=== PATIENT | male | born 1960 | race Caucasian/White ===

== ENCOUNTER 2020-11-06 11:16 | Day surgery (SDC) | payer BC, OTHER ==
[2020-10-31 12:13] LABS: BASOPHILS % (AUTO) 0.5 % (0-1); EOSINOPHILS # (AUTO) 0.1 X10'3 (0-0.9); EOSINOPHILS % (AUTO) 0.7 % (0-6); LYMPHOCYTES # (AUTO) 1.2 X10'3 (1.1-4.8); MEAN CORPUSCULAR HEMOGLOBIN 29.2 PG (27.0-31.0); MEAN CORPUSCULAR VOLUME 88.5 FL (78-98); MEAN PLATELET VOLUME 8.2 FL (7.4-10.4); MONOCYTES # (AUTO) 0.5 X10'3 (0-0.9); MONOCYTES % (AUTO) 7.5 % (2-12); NEUTROPHILS # (AUTO) 5.4 X10'3 (1.8-7.7); NEUTROPHILS % (AUTO) 74.3 % (42-75); PRE OP HEMATOCRIT 47.7 % (42.0-52.0); PRE OP HEMOGLOBIN 15.7 g/dL (14.0-17.9); PRE OP PLATELET COUNT 236 X10'3 (140-440); RED BLOOD COUNT 5.38 X10'6 (4.70-6.10); RED CELL DISTRIBUTION WIDTH 13.5 % (11.5-14.5)
[2020-10-31 12:33] LABS: ALBUMIN 3.7 G/DL (3.4-5.0); ALBUMIN/GLOBULIN RATIO 1.1 (1.1-1.5); ALKALINE PHOSPHATASE 98 IU/L (46-116); BLOOD UREA NITROGEN 27 MG/DL (7-18); BUN/CREATININE RATIO 24.3 (5.4-32.0); CALCIUM 9.6 MG/DL (8.5-10.1); CHLORIDE 107 MMOL/L (99-107); CREATININE 1.11 MG/DL (0.60-1.10); PRE OP ALT 41 U/L (30-65); PRE OP AST 27 U/L (10-37); PRE OP BILIRUB, TOTAL 0.6 MG/DL (0.0-1.0); PRE OP GLUCOSE 104 MG/DL (70-104); PRE OP POTASSIUM 4.6 MMOL/L (3.4-5.1); TOTAL CARBON DIOXIDE 29.2 MMOL/L (24-32); TOTAL PROTEIN 7.1 G/DL (6.4-8.2); eGFR 67 ML/MIN
[2020-10-31 12:37] LABS: PRE OP ANION GAP 8 (8-16); PRE OP SODIUM 144 MMOL/L (135-145)
[2020-11-06] VITALS (21 sets, daily range): BP systolic 104–152; BP diastolic 56–91
[~2020-11-06] VITALS: Ht 188 cm; Wt 95.5 kg
[~2020-11-06 11:16] MED LIST: ASPI-1265 PO; ATOR20TA66 PO; LISI-790 PO; cefazolin/dext.iso 2gm/100ml 100 ML IV ONE; famotidine 20mg tablet PO ONE; ringers solution, lacted 1,000 ML IV SCH
[2020-11-06] MEDS ORDERED: BUPIVAcaine/PF 2.5 mg/ml (0.25%) 30ml vial ONE (12:51)
[2020-11-06] MEDS ORDERED: LIDOcaine 1% 30ml preserv. free vial ONE (12:51)
[2020-11-06] MEDS ORDERED: sevoflurane 250ml liquid IH ONE (12:52)
[2020-11-06] MEDS ORDERED: fentaNYL /PF 50mcg/ml 5ml ampule ONE (13:02)
[2020-11-06] MEDS ORDERED: midazolam 1 mg/ML 2ml injection ONE (13:02)
[2020-11-06] MEDS ORDERED: LIDOcaine 2% 5ml jelly ONE (13:10)
[2020-11-06] MEDS ORDERED: dexamethasone sod phosphate 4mg/ml inj. ONE (13:25)
[2020-11-06] MEDS ORDERED: ondansetron/PF 4mg/2ml inj ONE (13:25)
[2020-11-06] MEDS ORDERED: propofol inj 20 ML IV ONE (13:25)
[2020-11-06] MEDS ORDERED: rocuronium 10mg/ml inj IV ONE (13:25)
[2020-11-06] MEDS ORDERED: atropine 0.4 mg/ml 20ml vial ONE (13:36)
[2020-11-06] MEDS ORDERED: glycopyrrolate 0.2mg/ml inj ONE (13:36)
[2020-11-06] MEDS ORDERED: ondansetron/PF 4mg/2ml inj IV PRN (13:50)
[2020-11-06] MEDS ORDERED: morphine 4 MG/ML inj SYRINge IV PRN (13:50)
[2020-11-06] MEDS ORDERED: acetaminophen 1,000mg/100ml IV 100 ML IV PRN (13:50)
[2020-11-06] MEDS ORDERED: ringers solution, lacted 1,000 ML IV SCH (13:50)
[2020-11-06] MEDS ORDERED: proCHLORperazine 10 MG/2 ml inj IV PRN (13:50)
[2020-11-06] MEDS ORDERED: morphine 2 MG/ML inj. syringe IV PRN (13:50)
[2020-11-06] MEDS ORDERED: meperidine/PF 25mg/ml syringe IV PRN ×3 (13:50)
[2020-11-06] MEDS ORDERED: hydrALAZINE 20mg/ml inj. IV PRN (13:50)
[2020-11-06] MEDS ORDERED: neostigmine methylsulfate 1 MG/ML 10ml vial ONE (14:10)
--- NOTE | 2020-11-06 14:21 | NUR ---
Received from OR via SUNDAY IN STABLE CONDITION , accompanied by Anesthesiologist and TELECOM BILLING ANALYST report given by Fabio. Addendum: 11/06/20 at 1458 by Sirena Multani RN Amended: Links added.
[2020-11-06] MEDS ORDERED: HYDROcodone/acetaminophen 10/325mg tab PO PRN (14:25)
[2020-11-06] MEDS ORDERED: HYDROcodone/acetaminophen 5mg/325mg tablet PO PRN (14:25)
--- NOTE | 2020-11-06 18:23 | NUR ---
PATIENT STABLE AND UP SINCE 1729 TRYING TO VOID. Addendum: 11/06/20 at 1823 by Sirena Multani RN Amended: Links added.
[2020-11-06] MEDS ORDERED: LIDOcaine 2% 10ml TOPICAL JELLY (Urojet) MM ONE (19:20)
--- NOTE | 2020-11-06 19:51 | NUR ---
PATIENT DISCHARGED FROM PACU IN STABLE CONDITION AFTER CANO CATHETER PLACE PATIENT WAS UNABLE TO VOID. PATIENT GIVEN WRITTEN AND VERBAL DISCHARGE INSTRUCTIONS INCLUDING CANO CATHETER CARE. PATIENT LEFT FACILITY IN WHEELCHAIR WITH RN. COULTER GIVEN INSTRUCTIONS ON HOW TO EMPTY THE CATHETER AND TO CALL DR. JOSSELINE AN Addendum: 11/06/201955 by Sirena Multani RN OFFICE T[facility] TO MAKE AN APPOINTMENT TO HAVE THE CATHETER REMOVED ON THURSDAY. Addendum: 11/06/201955 by Sirena Multani RN Amended: Links added.
== END 2020-11-06 19:51 | disposition home or self-care (01) ==
LOC: PAS 11:16
PROVIDERS: ATTEND Surgery
DX: K40.91 Unilateral inguinal hernia, without obstruction or gangrene, recurrent (principal); I25.10 Atherosclerotic heart disease of native coronary artery without angina pectoris; I10 Essential (primary) hypertension; E78.5 Hyperlipidemia, unspecified; Z79.899 Other long term (current) drug therapy; Z98.890 Other specified postprocedural states; Z95.5 Presence of coronary angioplasty implant and graft; Z79.82 Long term (current) use of aspirin; Z72.89 Other problems related to lifestyle; Z20.822 Contact with and (suspected) exposure to COVID-19
CPT/HCPCS: 36415; 49651; 80053; 82948; 85025; 93005; C1781; J0461; J1100; J2001; J2250; J2405; J2704; J2710; J3010; J3490; S2900; U0003; U0005; A4215; A4618; J7120